=== PATIENT | male | born 1995 | race Caucasian/White ===

== ENCOUNTER 2018-08-02 23:29 | Emergency (ER) | payer SELFPAY ==
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
== END 2018-08-03 02:35 ==
LOC: ER 23:29
DX: W22.8XXA Striking against or struck by other objects, initial encounter; Y93.I9 Activity, other involving external motion; Y92.410 Unspecified street and highway as the place of occurrence of the external cause; I46.9 Cardiac arrest, cause unspecified
CPT/HCPCS: 92950; 99285